=== PATIENT | male | born 1945 | race Caucasian/White ===

== ENCOUNTER → 2018-02-04 10:18 | Outpatient (CLI) | payer MEDICARE, OTHER, SELFPAY ==
[2018-02-04 11:06] LABS: INR 3.2 (1.0-3.5); Prothrombin Time 29.7 sec (9.3-10.8)
== END ==
PROVIDERS: PCP General Practice; Visit Provider General Practice
DX: I48.91 Unspecified atrial fibrillation (principal); Z79.01 Long term (current) use of anticoagulants
CPT/HCPCS: 36415; 85610

== ENCOUNTER 2018-03-11 10:31 | Outpatient (CLI) | payer MEDICARE, OTHER, SELFPAY ==
[2018-03-11 11:19] LABS: INR 2.9 (1.0-3.5)
== END 2018-03-11 10:51 ==
PROVIDERS: PCP General Practice; Visit Provider General Practice
DX: I48.91 Unspecified atrial fibrillation (principal); Z79.01 Long term (current) use of anticoagulants
CPT/HCPCS: 36415; 85610

== ENCOUNTER 2018-04-09 10:35 | Outpatient (CLI) | payer MEDICARE, OTHER, SELFPAY ==
[2018-04-09 11:48] LABS: INR 2.1 (1.0-3.5); Prothrombin Time 19.7 sec (9.3-10.8)
== END 2018-04-09 10:55 ==
PROVIDERS: PCP General Practice; Visit Provider General Practice
DX: I48.91 Unspecified atrial fibrillation (principal); Z79.01 Long term (current) use of anticoagulants
CPT/HCPCS: 36415; 85610

== ENCOUNTER 2018-04-30 10:34 | Outpatient (CLI) | payer MEDICARE, OTHER, SELFPAY ==
[2018-04-30 11:12] LABS: INR 2.2 (1.0-3.5); Prothrombin Time 20.9 sec (9.3-10.8)
== END 2018-04-30 10:54 ==
PROVIDERS: PCP General Practice; Visit Provider General Practice
DX: I48.91 Unspecified atrial fibrillation (principal); Z79.01 Long term (current) use of anticoagulants
CPT/HCPCS: 36415; 85610

== ENCOUNTER 2018-06-03 10:54 | Outpatient (CLI) | payer MEDICARE, OTHER, SELFPAY ==
[2018-06-03 11:50] LABS: INR 2.5 (1.0-3.5); Prothrombin Time 23.5 sec (9.3-10.8)
== END 2018-06-03 11:14 ==
PROVIDERS: PCP General Practice; Visit Provider General Practice
DX: I48.91 Unspecified atrial fibrillation (principal); Z79.01 Long term (current) use of anticoagulants
CPT/HCPCS: 36415; 85610

== ENCOUNTER 2018-07-09 10:10 | Outpatient (CLI) | payer MEDICARE, OTHER, SELFPAY ==
[2018-07-09 10:47] LABS: INR 2.3 (0.9-1.1); Prothrombin Time 23.5 sec (9.3-11.0)
== END 2018-07-09 10:30 ==
PROVIDERS: PCP General Practice; Visit Provider General Practice
DX: I48.91 Unspecified atrial fibrillation (principal); Z79.01 Long term (current) use of anticoagulants
CPT/HCPCS: 36415; 85610

== ENCOUNTER 2018-08-13 10:46 | Outpatient (CLI) | payer MEDICARE, OTHER, SELFPAY ==
[2018-08-13 11:45] LABS: Prothrombin Time 20.6 sec (9.3-11.0)
== END 2018-08-13 11:06 ==
PROVIDERS: PCP General Practice; Visit Provider General Practice
DX: I48.91 Unspecified atrial fibrillation (principal); Z79.01 Long term (current) use of anticoagulants
CPT/HCPCS: 36415; 85610

== ENCOUNTER 2018-09-03 10:22 | Outpatient (CLI) | payer MEDICARE, OTHER, SELFPAY ==
[2018-09-03 11:18] LABS: INR 2.3 (0.9-1.1); Prothrombin Time 23.4 sec (9.3-11.0)
== END 2018-09-03 10:42 ==
PROVIDERS: PCP General Practice; Visit Provider General Practice
DX: I48.91 Unspecified atrial fibrillation (principal); Z79.01 Long term (current) use of anticoagulants
CPT/HCPCS: 36415; 85610

== ENCOUNTER 2018-10-08 11:08 | Outpatient (CLI) | payer MEDICARE, OTHER, SELFPAY ==
[2018-10-08 11:51] LABS: INR 2.6 (0.9-1.1); Prothrombin Time 25.9 sec (9.3-11.0)
== END 2018-10-08 11:28 ==
PROVIDERS: PCP General Practice; Visit Provider General Practice
DX: I48.91 Unspecified atrial fibrillation (principal); Z79.01 Long term (current) use of anticoagulants
CPT/HCPCS: 36415; 85610

== ENCOUNTER 2018-11-06 11:43 | Outpatient (CLI) | payer MEDICARE, OTHER, SELFPAY ==
[2018-11-06 12:30] LABS: INR 2.3 (0.9-1.1); Prothrombin Time 23.3 sec (9.3-11.0)
== END 2018-11-06 12:03 ==
PROVIDERS: PCP General Practice; Visit Provider General Practice
DX: I48.91 Unspecified atrial fibrillation (principal); Z79.01 Long term (current) use of anticoagulants
CPT/HCPCS: 36415; 85610

== ENCOUNTER 2018-12-02 10:47 | Outpatient (CLI) | payer MEDICARE, OTHER, SELFPAY ==
[2018-12-02 11:29] LABS: INR 2.6 (0.9-1.1); Prothrombin Time 26.4 sec (9.3-11.0)
== END 2018-12-02 11:07 ==
PROVIDERS: PCP General Practice; Visit Provider General Practice
DX: I48.91 Unspecified atrial fibrillation (principal); Z79.01 Long term (current) use of anticoagulants
CPT/HCPCS: 36415; 85610

== ENCOUNTER 2019-01-08 09:13 | Outpatient (CLI) | payer MEDICARE, OTHER, SELFPAY ==
[2019-01-08 10:12] LABS: INR 2.8 (0.9-1.1); Prothrombin Time 28.3 sec (9.3-11.0)
== END 2019-01-08 09:33 ==
PROVIDERS: PCP General Practice; Visit Provider General Practice
DX: I48.91 Unspecified atrial fibrillation (principal); Z79.01 Long term (current) use of anticoagulants
CPT/HCPCS: 36415; 85610

== ENCOUNTER 2019-02-04 10:02 | Outpatient (CLI) | payer MEDICARE, OTHER, SELFPAY ==
[2019-02-04 10:53] LABS: INR 2.7 (0.9-1.1); Prothrombin Time 27.4 sec (9.3-11.0)
== END 2019-02-04 10:22 ==
PROVIDERS: PCP General Practice; Visit Provider General Practice
DX: I48.91 Unspecified atrial fibrillation (principal); Z79.01 Long term (current) use of anticoagulants
CPT/HCPCS: 36415; 85610

== ENCOUNTER 2019-03-18 10:26 | Outpatient (CLI) | payer MEDICARE, OTHER, SELFPAY ==
[2019-03-18 11:47] LABS: INR 2.4 (0.9-1.1); Prothrombin Time 23.6 sec (9.3-11.0)
== END 2019-03-18 10:46 ==
PROVIDERS: PCP General Practice; Visit Provider General Practice
DX: I48.91 Unspecified atrial fibrillation (principal); Z79.01 Long term (current) use of anticoagulants
CPT/HCPCS: 36415; 85610

== ENCOUNTER 2019-04-08 10:24 | Outpatient (CLI) | payer MEDICARE, OTHER, SELFPAY ==
[2019-04-08 11:14] LABS: INR 2.2 (0.9-1.1); Prothrombin Time 21.8 sec (9.3-11.0)
== END 2019-04-08 10:44 ==
PROVIDERS: PCP General Practice; Visit Provider General Practice
DX: I48.91 Unspecified atrial fibrillation (principal); Z79.01 Long term (current) use of anticoagulants
CPT/HCPCS: 36415; 85610

== ENCOUNTER 2019-05-01 10:58 | Outpatient (CLI) | payer MEDICARE, OTHER, SELFPAY ==
[2019-05-01 11:55] LABS: INR 2.2 (0.9-1.1); Prothrombin Time 21.6 sec (9.3-11.0)
== END 2019-05-01 11:18 ==
PROVIDERS: PCP General Practice; Visit Provider General Practice
DX: I48.91 Unspecified atrial fibrillation (principal); Z79.01 Long term (current) use of anticoagulants
CPT/HCPCS: 36415; 85610

== ENCOUNTER 2019-06-03 10:07 | Outpatient (CLI) | payer MEDICARE, OTHER, SELFPAY ==
[2019-06-03 11:09] LABS: INR 2.4 (0.9-1.1); Prothrombin Time 23.2 sec (9.3-11.0)
== END 2019-06-03 10:27 ==
PROVIDERS: PCP Family Medicine; Visit Provider General Practice
DX: I48.91 Unspecified atrial fibrillation (principal); Z79.01 Long term (current) use of anticoagulants
CPT/HCPCS: 36415; 85610

== ENCOUNTER 2019-08-12 07:59 | Outpatient (CLI) | payer MEDICARE, OTHER, SELFPAY | END 2019-08-12 08:19 | PROVIDERS: PCP Family Medicine; Visit Provider Internal Medicine Cardiovascular Disease | DX: I48.91 Unspecified atrial fibrillation (principal) | CPT/HCPCS: 99202; 93005; 93010; 99213 ==

== ENCOUNTER 2019-08-28 08:12 | Outpatient (CLI) | payer MEDICARE, OTHER, SELFPAY ==
[2019-08-28 09:58] LABS: Digoxin 1.04 ng/mL (0.90-2.00)
== END 2019-08-28 08:32 ==
PROVIDERS: PCP Family Medicine; Visit Provider Internal Medicine Cardiovascular Disease
DX: I48.91 Unspecified atrial fibrillation (principal); Z51.81 Encounter for therapeutic drug level monitoring
CPT/HCPCS: 36415; 80162

== ENCOUNTER 2019-09-02 01:41 | Outpatient (CLI) | payer MEDICARE, OTHER, SELFPAY ==
--- NOTE | 2019-09-02 16:10 | DI.US_ITS ---
APPROVED REPORT EXAM: Comprehensive 2D, Doppler, and color-flow Echocardiogram Patient Location: Out-Patient Conclusion Left Ventricle : The left ventricle is normal size. Left ventricular systolic function is mildly dec reased. There is normal left ventricular wall thickness. There is normal LV segmental wall motion. D iastolic function was indeterminate. LVEF is 45-49%. Right Ventricle : The right ventricle is normal size. RV function appears normal. Atria : Left atrium is mildly dilated. Right atrium is mildly dilated. Aortic Valve : Aortic valve is trileaflet. No aortic regurgitation is present. There is no aortic niki vular stenosis. Mitral Valve : There is mitral annular calcification. Trace mitral regurgitation. No evidence of mitr al valve stenosis. Tricuspid Valve : The tricuspid valve is normal in structure. Mild to moderate tricuspid regurgitatio n. There is no tricuspid valve stenosis. Great Vessels : IVC is normal in size and collapses >50% with inspiration. Estimated RVSP is 23-26 m mHg. There is no prior echocardiogram available for comparison. Wall motion Left Ventricle The left ventricle is normal size. Left ventricular systolic function is mildly decreased. There is n ormal left ventricular wall thickness. There is normal LV segmental wall motion. Diastolic function w as indeterminate. LVEF is 45-49%. Right Ventricle The right ventricle is normal size. RV function appears normal. Atria Left atrium is mildly dilated. Right atrium is mildly dilated. Aortic Valve Aortic valve is trileaflet. There is no aortic valvular stenosis. No aortic regurgitation is present. Mitral Valve There is mitral annular calcification. No evidence of mitral valve stenosis. Trace mitral regurgitati on. Tricuspid Valve The tricuspid valve is normal in structure. There is no tricuspid valve stenosis. Mild to moderate tr icuspid regurgitation. Pulmonic Valve The pulmonary valve is normal in structure. There is no pulmonic valvular stenosis. There is no pulmo abdoulaye valvular regurgitation. Great Vessels The aortic root is normal in size. The ascending aorta size is mildly dilated. IVC is normal in size and collapses >50% with inspiration. Estimated RVSP is 23-26 mmHg. Pericardium There is no pericardial effusion. 2D Dimensions IVSD d PLAX 0.88 cm M: 0.6-1.2 LV Vol A2C d MOD 78.4 mL LVPW d PLAX 0.84 cm M: 0.6 - 1.2 LV Vol A4C d MOD 90.5 mL LVID d PLAX 4.28 cm M: 4.2 - 5.8 LA vol/ BSA A2C s A-L 57.4 mL/m2 LVDs 3.10 cm M: 2.5 - 4.0 LA vol/ BSA A4C s A-L 52.5 mL/m2 Ao Root d 3.46 cm M: 3.1 - 3.7 LA Vol/ BSA Biplane s A-L 60.1 mL/m2 RA Area A4C 32.88 cm2 LA Area A4C s MOD 31.06 cm2 RA Vol/ BSA A4C s A-L 61.7 mL/m2 LA Area A2C s MOD 29.65 cm2 Ao Asc Diam d 3.49 cm M: 2.6 - 3.4 LV EF A4C MOD 50.9 % LV EF Teichholz 53.2 % LV EF A2C MOD 48.0 % LVEF (Brink's) 47.39 % M: 52 - 72 LV EF Biplane MOD 47.4 % LV Volume 62.22 mL M: 62 - 150 LV Volume Index 29.91 mL/m2 M: 34 - 74 LV Vol Biplane MOD 84.1 mL FS 27.10 % LV Diastology MV E' medial 0.102 (>0.07 m/s) E/A Ratio 2.1 LV E/e MED 9.35 (<14) MV E Vmax 0.95 (0.4-1.3 m/s) MV E/E' medial 9.39 MV A Vmax 0.45 (0.4-1.3 m/s) MV E/A Ratio 1.99 Aortic Valve LVOT Area 2.60 cm2 AoV Area Vmax 1.56 cm2 LVOT Vmax 0.84 m/s AoV Area/ BSA (Vmax) 0.75 cm2/m2 LVOT Mean Kevin. 0.55 m/s FRANCISCA Mean Kevin. 1.50 cm2 LVOT Peak Grad 2.8 mmHg FRANCISCA Mean Kevin. Index 0.72 cm2/m2 LVOT Mean Grad 1.4 mmHg LVOT VTI 0.152 m LVOT Diam s 1.80 cm (M/F) 1.5-2.5 AoV Vmax 1.40 (0.5-1.3 m/s) Velocity Ratio 0.60 AoV Mean Kevin. 0.95 m/s AoV Peak Grad 7.9 mmHg LVOT SV 39.49 mL AoV Mean Grad 4.2 (<5 mmHg) AoV VTI 0.229 (0.18-0.25 m) AoV Area VTI 1.72 (2.5-4.5 cm2) AoV Area/ BSA (VTI) 0.82 cm/m2 Mitral Valve MV DT 155 (160-240 msec) MV PHT 45 msec MV Area PHT 4.88 cm2 Pulmonary Valve PV Vmax 0.99 (0.5-1.5 m/s) RVOT Peak Gr. 1.52 mmHg PV Peak Grad 3.9 mmHg RVOT Mean Gr. 0.70 mmHg PV Mean Grad 1.9 mmHg RVOT VTI 0.108 m PV VTI 0.156 m RVOT Vmax 0.62 m/s Tricuspid Valve TR Peak Grad 23.5 mmHg TR Vmax 2.43 m/s RA Pressure 3.00 mmHg RVSP (TR) 26.6 mmHg
== END 2019-09-02 02:01 ==
PROVIDERS: PCP Family Medicine; Visit Provider Internal Medicine Cardiovascular Disease
DX: I48.91 Unspecified atrial fibrillation (principal); I34.0 Nonrheumatic mitral (valve) insufficiency; I50.1 Left ventricular failure, unspecified
CPT/HCPCS: 93306

== ENCOUNTER 2019-12-31 09:55 | Outpatient (REF) | payer MEDICARE, OTHER, SELFPAY ==
[2019-12-31 18:36] LABS: ALT 33 U/L (16-63); AST 21 U/L (15-37); Alkaline Phosphatase 59 U/L (46-116); Anion Gap 8.4 mmol/L (3-11); BUN 13 mg/dL (7-18); Bilirubin, Total 0.7 mg/dL (0.2-1.0); CO2 27.6 mmol/L (21.0-32.0); CREATININE 1.09 mg/dL (0.70-1.30); Calculated LDL 119 mg/dL (<100); Chloride 102 mmol/L (98-107); Cholesterol 177 mg/dL (<200); Glucose 130 mg/dL (74-106); HDL Cholesterol 34 mg/dL (40-60); Magnesium 2.1 mg/dL (1.8-2.4); Potassium 4.5 mmol/L (3.5-5.1); Sodium 138 mmol/L (136-145); Total Protein 7.4 g/dL (6.4-8.2); Triglyceride 121 mg/dL (<150)
== END 2019-12-31 10:15 ==
LOC: LBN 09:55
PROVIDERS: PCP Family Medicine; Visit Provider Family Medicine
DX: I10 Essential (primary) hypertension (principal); I48.91 Unspecified atrial fibrillation
CPT/HCPCS: 80053; 80061; 83735

== ENCOUNTER → 2020-08-15 10:07 | Outpatient (BNVA) | payer MEDICARE, OTHER, SELFPAY | PROVIDERS: PCP Family Medicine; Referring Provider Family Medicine; Visit Provider Internal Medicine Cardiovascular Disease | DX: I48.91 Unspecified atrial fibrillation (principal); Z79.01 Long term (current) use of anticoagulants; I10 Essential (primary) hypertension; E78.5 Hyperlipidemia, unspecified; J44.9 Chronic obstructive pulmonary disease, unspecified | CPT/HCPCS: 99214; 99213 ==

== ENCOUNTER → 2021-08-17 09:54 | Outpatient (BNVA) | payer MEDICARE, OTHER, SELFPAY | PROVIDERS: PCP Family Medicine; Referring Provider Family Medicine; Visit Provider Internal Medicine Cardiovascular Disease | DX: I48.91 Unspecified atrial fibrillation (principal); I10 Essential (primary) hypertension; Z79.01 Long term (current) use of anticoagulants | CPT/HCPCS: 99214; 99213 ==

== ENCOUNTER 2022-04-03 02:37 | Outpatient (CLI) | payer MEDICARE, OTHER, SELFPAY ==
[2022-04-03 09:50] LABS: ALT 35 U/L (16-63); AST 26 U/L (15-37); Albumin 4.1 g/dL (3.4-5.0); Alkaline Phosphatase 62 U/L (46-116); Anion Gap 9.1 mmol/L (3-11); BUN 13 mg/dL (7-18); Bilirubin, Total 0.8 mg/dL (0.2-1.0); CO2 28.9 mmol/L (21.0-32.0); CREATININE 1.1 mg/dL (0.70-1.30); Calcium 8.5 mg/dL (8.5-10.1); Chloride 101 mmol/L (98-107); Estimated GFR 70.44 (mL/min/1.73m2); Glucose 132 mg/dL (74-106); Potassium 4.3 mmol/L (3.5-5.1); Sodium 139 mmol/L (136-145)
[2022-04-03 14:22] LABS: Digoxin 3.08 ng/mL (0.90-2.00)
[2022-04-04 10:04] LABS: HIV-1/2 Ag & Ab Screen Negative (Negative)
[2022-04-04 10:25] LABS: Hepatitis C Ab w Rflx HCV PCR Negative (Negative)
== END 2022-04-03 02:38 | disposition home or self-care (01) ==
LOC: LBO 02:38
PROVIDERS: PCP Family Medicine; Visit Provider Family Medicine
DX: Z11.3 Encounter for screening for infections with a predominantly sexual mode of transmission (principal); E78.5 Hyperlipidemia, unspecified; I48.91 Unspecified atrial fibrillation; Z11.59 Encounter for screening for other viral diseases
CPT/HCPCS: 36415; 80053; 86803; 87389; 80162

== ENCOUNTER → 2022-08-20 09:47 | Outpatient (BNVA) | payer MEDICARE, SELFPAY | PROVIDERS: PCP Family Medicine; Visit Provider Internal Medicine Cardiovascular Disease | DX: I48.21 Permanent atrial fibrillation (principal); Z79.01 Long term (current) use of anticoagulants | CPT/HCPCS: 99213 ==

== ENCOUNTER 2023-04-23 02:41 | Outpatient (CLI) | payer MEDICARE, SELFPAY ==
[2023-04-23 11:44] LABS: Prothrombin Time 27.5 sec (9.1-11.1)
[2023-04-23 12:15] LABS: Anion Gap 10.1 mmol/L (3-11); BUN 12 mg/dL (7-18); CO2 27.9 mmol/L (21.0-32.0); Calcium 9.1 mg/dL (8.5-10.1); Chloride 104 mmol/L (98-107); Glucose 130 mg/dL (74-106); Potassium 4.1 mmol/L (3.5-5.1); Sodium 142 mmol/L (136-145)
== END 2023-04-23 02:42 | disposition home or self-care (01) ==
LOC: LBO 02:41
PROVIDERS: PCP Family Medicine; Visit Provider Family Medicine
DX: E78.5 Hyperlipidemia, unspecified (principal); R73.03 Prediabetes; I48.91 Unspecified atrial fibrillation
CPT/HCPCS: 36415; 80048; 85610

== ENCOUNTER → 2023-07-26 00:57 | Outpatient (CLI) | payer MEDICARE, SELFPAY ==
--- NOTE | 2023-07-26 12:30 | DI.US_ITS ---
APPROVED REPORT EXAM: Comprehensive 2D, Doppler, and color-flow Echocardiogram Patient Location: Out-Patient Field Marketing Manager: Dmitri Saldana RDCS (AE) Conclusion The atria are moderately dilated,ventricles normal sizes Normal LV systolic function,EF 50-55%. Normal RV function. Mild mitral annular calcification,mild MR. Mild aortic sclerosis,no AI or . Moderate TR without pht n. No intracardiac shunt No pericardial effusion. Wall motion Left Ventricle The left ventricle is normal size. Left ventricular systolic function is borderline. The Ejection Fra ction is 50-55%. There is normal left ventricular wall thickness. There is normal LV segmental wall m otion. There is no ventricular septal defect visualized. LVEF is 50-55%. Right Ventricle The right ventricle is normal size. Right ventricular systolic function is grossly normal. Atria Left atrium is moderately dilated. Right atrium is severely dilated. The interatrial septum is intact with no evidence for an atrial septal defect. Aortic Valve The aortic valve is normal in structure. Aortic valve is trileaflet. There is no aortic valvular sten osis. No aortic regurgitation is present. Mitral Valve Moderate mitral annular calcification. No evidence of mitral valve stenosis. Trace to mild mitral reg urgitation. Tricuspid Valve The tricuspid valve is normal in structure. There is no tricuspid valve stenosis. Moderate tricuspid regurgitation. The RVSP is 29.3 mmHg. Pulmonic Valve The pulmonary valve is normal in structure. There is no pulmonic valvular stenosis. Trace pulmonic re gurgitation. Great Vessels The aortic root is normal in size. The ascending aorta is normal in size. IVC is normal in size and c ollapses >50% with inspiration. Pericardium There is no pericardial effusion. 2D Dimensions IVSD d PLAX 0.86 cm M: 0.6-1.2 Ao Root d 3.39 cm M: 3.1 - 3.7 LVPW d PLAX 0.89 cm M: 0.6 - 1.2 Ao Asc Diam d 3.37 cm M: 2.6 - 3.4 LVID d PLAX 4.87 cm M: 4.2 - 5.8 LVDs 3.65 cm M: 2.5 - 4.0 LV EF Teichholz 49.5 % FS 25.09 % LV EDV (Teich) 111.5 mL LV ESV (Teich) 56.3 mL Stroke Vol Index (Teich) 26.25 Auto EF LV EDV A4C 91.9 mL LV EDV A2C 121.4 mL LV EDV BP 102.9 mL LV ESV A4C 48.2 mL LV ESV A2C 65.6 mL LV ESV BP 56.9 mL LVEF(%) A4C 47.6 % LVEF(%) A2C 46.0 % LVEF(%) BP 44.7 % LV SV A4C 43.7 ml LV SV A2C 55.8 ml LV SV BP 46.0 ml LV CO A4C 3.2 L/min LV CO A2C 5.2 L/min LV CO BP 4.2 L/min HR A4C 72.88 BPM HR A2C 93.51 BPM LV EDV Index (BP) LA Volume LA Length A4C 7.1 cm LA Length A2C 6.8 cm LA Area A4C s 30.42 cm2 LA Area A2C s 32.14 cm2 LA Vol A4C A-L 110.77 mL LA Vol A2C A-L 129.84 mL LA Vol Biplane A-L 122.9 mL LA Vol/BSA A4C A-L LA Vol/BSA A2C A-L LA Vol/BSA BP A-L 58.5 mL/m2 LA Vol A4C MOD 101.4 mL LA Vol A2C MOD 122.0 mL LA Vol BP MOD 113.3 mL RA Volume RA Area A4C 33.4 cm2 RA ESV A4C (A-L) 127.2mL RA Vol/BSA A4C A-L RA Length A4C 7.4 cm RA ESV A4C (MOD) 124.5mL LV Diastology MV E' medial 0.134 (>0.07 m/s) MV E Vmax 1.21 (0.4-1.3 m/s) MV E' lateral 0.175 (>0.1 m/s) Aortic Valve AoV Vmax 1.09 m/s LVOT Vmax 0.77 m/s AoV Peak Grad 4.7 mmHg LVOT Peak Grad 2.4 mmHg AoV Area (Vmax) 1.71 cm2 LVOT VTI 0.150 m AoV VTI 0.173 m LVOT Mean Grad 1.5 mmHg AoV Mean Kevin. 0.76 m/s LVOT SV 36.18 mL AoV Mean Grad 2.6 mmHg LVOT Diam s 1.75 cm AoV Area (VTI) 2.09 cm2 Velocity Ratio 0.71 Pulmonary Valve RVOT Vmax 0.44 m/s RVOT Peak Gr. 0.8 mmHg RVOT VTI 0.060 m RVOT Mean Gr. 0.4 mmHg Tricuspid Valve RA Pressure 3.00 mmHg TR Vmax 2.56 m/s TV S' 0.13 m/s TR Peak Grad 26.2 mmHg RVSP (TR) 29.3 mmHg
== END ==
PROVIDERS: PCP Family Medicine; Visit Provider Internal Medicine Cardiovascular Disease
DX: I48.91 Unspecified atrial fibrillation (principal)
CPT/HCPCS: 93306

== ENCOUNTER 2023-08-22 09:44 | Outpatient (CLI) | payer MEDICARE, SELFPAY ==
--- NOTE | 2023-08-22 09:45 | RT.EKG_ITS ---
APPROVED REPORT Exam: Resting ECG Reason for Exam: follow up Patient Location: O HR:84 bpm ECG Measurements Heart Rate 84 AXIS NH [id number] P [id number] QRSd 93 QRS -2 QT 374 T 26 QTc 443 Conclusion Atrial fibrillation...? atrial activity Otherwise normal ECG
== END 2023-08-22 09:45 | disposition home or self-care (01) ==
LOC: DI.CARD 09:46
PROVIDERS: PCP Family Medicine; Visit Provider Internal Medicine Cardiovascular Disease
DX: I48.91 Unspecified atrial fibrillation (principal)
CPT/HCPCS: 93010

== ENCOUNTER → 2023-08-22 09:44 | Outpatient (BNVA) | payer MEDICARE, SELFPAY | PROVIDERS: PCP Family Medicine; Referring Provider Family Medicine; Visit Provider Internal Medicine Cardiovascular Disease | DX: I48.21 Permanent atrial fibrillation (principal); I10 Essential (primary) hypertension | CPT/HCPCS: 93005; 99213 ==

== ENCOUNTER 2023-10-13 09:21 | Emergency (ER) | payer MEDICARE, SELFPAY ==
[2023-10-13 09:25] VITALS: BP 181/104; PULSE 98; RESP 16; TEMP 36.7; O2SAT 98
[2023-10-13 09:30] VITALS: BP 168/99; PULSE 94; RESP 16; TEMP 36.8; O2SAT 97
--- NOTE | 2023-10-13 09:35 | W.ED.GENAD ---
Discharge Plan Disposition Patient Disposition: Home Condition: Stable Discharge Details Clinical Impression: Hematoma of right lower extremity Primary Care Provider: Andrew Gan ED Provider: Clive Avalos Home Meds and New Rx's Prescriptions: Continued omeprazole 20 mg capsule,delayed release(DR/EC) 20 mg PO DAILY Qty: 90 3RF diltiazem HCl [Cartia XT] 240 mg capsule,extended release 24hr 240 mg PO DAILY Qty: 90 3RF pravastatin 40 mg tablet 40 mg PO DAILY Qty: 90 3RF albuterol sulfate 90 mcg/actuation HFA aerosol inhaler 2 puff inhalation Q6H PRN (Reason: shortness of breath or wheezing) Qty: 8.5 6RF metoprolol succinate 25 mg tablet extended release 24 hr 25 mg PO DAILY Qty: 90 3RF warfarin 5 mg tablet 5 mg PO DAILY MDD 5 Qty: 90 3RF Protocol: Dose Management Condition: Saturday Dose/Route: 5 mg Instruction: 1 x 5 mg tablet Condition: Saturday Dose/Route: 5 mg Instruction: 1 x 5 mg tablet Condition: Saturday Dose/Route: 2.5 mg Instruction: 0.5 x 5 mg tablets Condition: Saturday Dose/Route: 5 mg Instruction: 1 x 5 mg tablet Condition: Dose/Route: 5 mg Instruction: 1 x 5 mg tablet Condition: Saturday Dose/Route: 2.5 mg Instruction: 0.5 x 5 mg tablets Condition: Saturday Dose/Route: 5 mg Instruction: 1 x 5 mg tablet Protocol Text: Adjustment Start Date: Saturday09/17/23 INR Value: 2.1 INR Date: 09/17/23 Recheck Date: 10/15/23 Discharge Instructions Additional Instructions: You have a hematoma that will resolve on its own over the course of a week or 2. You can try keeping the leg elevated and applying ice along with the Marco A wrap If not better in 1 to 2 weeks follow-up with your primary care provider If you feel more ill, have severe worsening pain or new symptoms such as difficulty breathing return to the emergency department for reevaluation HPI General Mode of arrival: ambulatory. Date/Time Provider Initiated Documentation: 10/13/23 09:22. Limitations to Documentation: no limitations. Information obtained by: patient. History of Present Illness 78 year old M presents to the emergency department with the chief complaint of Right calf bruising and pain, described as moderate, Patient started experiencing this day(s) (2) and it has been constant. Rest improves symptom(s), Movement worsens symptoms . Patient notes no other symptoms.. Related Data Home Medications Medication Instructions Recorded Confirmed diltiazem HCl 240 mg 240 mg PO DAILY #90 caps 11/26/22 10/13/23 capsule,extended release 24 hr (Cartia XT) omeprazole 20 mg capsule,delayed 20 mg PO DAILY #90 caps 11/26/22 10/13/23 release pravastatin 40 mg tablet 40 mg PO DAILY #90 tabs 01/07/23 10/13/23 albuterol sulfate 90 mcg/actuation 2 puff inhalation Q6H PRN 07/01/23 10/13/23 aerosol inhaler shortness of breath or wheezing #8.5 grams metoprolol succinate 25 mg 25 mg PO DAILY #90 tabs 07/01/23 10/13/23 tablet,extended release 24 hr warfarin 5 mg tablet 5 mg PO DAILY #90 tab-caps 08/05/23 10/13/23 Previous Rx's Medication Instructions Recorded diltiazem HCl 240 mg 240 mg PO DAILY #90 caps 11/26/22 capsule,extended release 24 hr (Cartia XT) omeprazole 20 mg capsule,delayed 20 mg PO DAILY #90 caps 11/26/22 release pravastatin 40 mg tablet 40 mg PO DAILY #90 tabs 01/07/23 albuterol sulfate 90 mcg/actuation 2 puff inhalation Q6H PRN 07/01/23 aerosol inhaler shortness of breath or wheezing #8.5 grams metoprolol succinate 25 mg 25 mg PO DAILY #90 tabs 07/01/23 tablet,extended release 24 hr warfarin 5 mg tablet 5 mg PO DAILY #90 tab-caps 08/05/23 Allergies Allergy/AdvReac Type Severity Reaction Status Date / Time prednisone Allergy Severe increased Verified 10/13/23 09:24 eye pressure, distorted vision General Stated Complaint: Orthopedic MOHIT: 3 Review of Systems All systems reviewed & are unremarkable except as noted in HPI and below Constitutional Constitutional: Denies chills, Denies fever(s) and Denies weakness Cardiovascular Cardiovascular: Denies chest pain and Denies dyspnea Respiratory Respiratory: Denies cough and Denies dyspnea Gastrointestinal Gastrointestinal: Denies abdominal pain, Denies nausea and Denies vomiting Musculoskeletal Musculoskeletal: Denies joint swelling Integumentary/Breasts Skin/Breast: Denies rash Neurologic Neurologic: Denies weakness Exam Const General: no acute distress Orientation: alert HENMT Head: normal to inspection Ears: external ears normal General nose exam: external nose normal Mouth: moist mucous membranes Eyes General: appearance normal, both eyes and all related structures Neck Neck: normal visual inspection Resp Effort & Inspection: normal respiratory effort and able to speak in complete sentences Cardio Rate: regular rate Skin General skin exam: no rashes or lesions noted Neuro General: patient alert and patient oriented x3 Extrem General: full ROM and capillary refill normal Psych Mental Status: mental status grossly normal Course Vital Signs Vital signs: Vital Signs Temperature 36.7 C 10/13/23 09:25 Pulse 98 H 10/13/23 09:25 Respiratory Rate 16 10/13/23 09:25 Blood Pressure 181/104 H 10/13/23 09:25 Pulse Oximetry 98 10/13/23 09:25 Temperature 36.8 C 10/13/23 09:30 Temperature Source Temporal Artery Scan 10/13/23 09:25 Pulse 94 H 10/13/23 09:30 Respiratory Rate 16 10/13/23 09:30 Respiratory Effort Normal, Non-Labored 10/13/23 09:27 Blood Pressure 168/99 H 10/13/23 09:30 Blood Pressure Position Sitting 10/13/23 09:25 Pulse Oximetry 97 10/13/23 09:30 Oxygen Delivery Method Room Air 10/13/23 09:25 Oxygen Flow Rate 0 10/13/23 09:25 Pain Level 6 10/13/23 09:30 Medical Decision Making 78-year-old male with a history of A-fib on Coumadin, comes in with right calf pain and swelling for 2 days. He says he was cutting wood, picked up a log and while turning another log rolled and hit him in the right calf. Denies falling or hitting his head, no other injuries. He had swelling and pain and bruising at the calf area so came in for an evaluation. Appears well in no distress speaking clearly and oriented x 4. His right lower leg just distal to the knee and proximal to the ankle is bruised. He does have what feels like a hematoma on the posterior superior right calf and it feels about 5 cm in diameter. No erythema or fluctuance, he has full range of motion of the knee and ankle and foot. Normal pulses and sensation in the foot. No bony tenderness. Discussed results with him that this will resolve on its own, do not feel any x-rays indicated as he has no bony tenderness. 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 MOHS performed for tumor removal. 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 History of cervical discectomy History of splenectomy Colonoscopy - MAC (05/29/17) Family History Father Lung cancer Hypertension Aorta aneurysm AA Surgery Mother Hypertension Sister Brain bleed Social History Smoking/Tobacco Use Status: Former Tobacco Use Quit Date: 06/24/80 Tobacco: How many years used: 18 Smoking risk assessment performed?: Yes Alcohol Intake: current Alcohol Intake frequency: 3 or more drinks per day Alcohol type: beer Drug use: Never Substance use type: does not use Adopted: No Caregiver/Support person: No Foster care: No Household members: none Housing: house Number of Children: 2 number of grandchildren: 5 Communication Needs: None Education Level: high school Do you need help understanding health information?: Rarely current occupation: retired [employer] Pets and animals: No Sexually active: No Do you think of yourself as: straight/heterosexual Current gender identity: male What is your relationship status?: How often do you talk on the phone with friends or family?: three or more times per week How often do you get together with friends or relatives?: three or more times per week Do you belong to any clubs or organized social groups?: no Panel score (0-1 are the most socially isolated patients): 1 What type of physical activity do you participate in: none Shweta/Taoism: Zoroastrianism Special shweta needs: No Seatbelt use: always 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
== END 2023-10-13 09:46 | disposition home or self-care (01) ==
PROVIDERS: Emergency Provider Emergency Medicine; PCP Family Medicine
DX: S80.11XA Contusion of right lower leg, initial encounter (principal); I48.91 Unspecified atrial fibrillation; E78.5 Hyperlipidemia, unspecified; Z79.01 Long term (current) use of anticoagulants; Z87.891 Personal history of nicotine dependence; W22.8XXA Striking against or struck by other objects, initial encounter; Y93.89 Activity, other specified
CPT/HCPCS: 99283

== ENCOUNTER 2024-06-11 09:16 | Outpatient (CLI) | payer MEDICARE, SELFPAY | END 2024-06-11 09:17 | disposition home or self-care (01) | LOC: LBO 09:18 | PROVIDERS: PCP Family Medicine; Visit Provider Family Medicine | DX: Z80.42 Family history of malignant neoplasm of prostate (principal); Z12.5 Encounter for screening for malignant neoplasm of prostate | CPT/HCPCS: 36415; 84153 ==

== ENCOUNTER → 2024-08-21 09:48 | Outpatient (BNVA) | payer MEDICARE, SELFPAY | PROVIDERS: PCP Family Medicine; Visit Provider Internal Medicine Cardiovascular Disease | DX: I48.21 Permanent atrial fibrillation (principal) | CPT/HCPCS: 99213 ==

== ENCOUNTER 2025-03-09 03:34 | Outpatient (CLI) | payer MEDICARE, SELFPAY ==
--- NOTE | 2025-03-09 05:45 | DI.MRI_ITS ---
Exam(s) MR UPPER JOINT LT WO EXAM: MR UPPER JOINT LT WO CLINICAL HISTORY: loss of ROM,LT SHOULDER PAIN, M25.512. TECHNIQUE: Multiplanar multisequence MRI was performed. COMPARISON: No exams were available for comparison FINDINGS: BONES: There is no fracture or contusion pattern. JOINTS: There are marked degenerative changes seen at the acromioclavicular joint. There is an AC joint cyst present. There is marked osteoarthritis of the glenohumeral joint with loss of the joint space, subchondral cysts, loss of the articular cartilage and subchondral edema. There is a small amount of fluid seen in the joint space. There are densities seen in the inferior glenohumeral joint space consistent with loose bodies. The largest measures 1.6 cm. TENDONS: Supraspinatus: There is thickening and intermediate signal seen in the supraspinatus consistent with tendinosis. There is hyperintense signal seen at its insertion site consistent with a partial tear. Infraspinatus: There is tendinosis of the infraspinatus tendon. Subscapularis: Unremarkable. Teres Minor: Unremarkable. Biceps and [place]: There is tendinosis of the biceps tendon. MUSCLES: Unremarkable. GLENOID LABRUM: The glenoid labrum appears irregular in size and signal superiorly and posteriorly consistent with degeneration and/or tear. SOFT TISSUES: Unremarkable. LIGAMENTS: Unremarkable. OTHER: There is a large amount of fluid seen in the subacromial and subdeltoid bursa. IMPRESSION: 1. Partial tear of the supraspinatus tendon. 2. Tendinosis of the supraspinatus and infraspinatus tendons. 3. Marked osteoarthritis of the glenohumeral joint. 4. Density seen in the inferior glenohumeral joint space consistent with loose bodies. The largest measures 1.6 cm. 5. Marked degenerative changes seen at the acromioclavicular joint. 6. There is degeneration and/or tear of the glenoid labrum superiorly and posteriorly. 7. Large amount of fluid seen in the subdeltoid bursa. DATA REPOSITORY:
== END 2025-03-09 03:54 ==
LOC: DI 03:35
PROVIDERS: PCP Family Medicine; Visit Provider Family Medicine
DX: M25.512 Pain in left shoulder (principal); M75.112 Incomplete rotator cuff tear or rupture of left shoulder, not specified as traumatic; M19.012 Primary osteoarthritis, left shoulder
CPT/HCPCS: 73221

== ENCOUNTER 2025-03-30 14:29 | Outpatient (CLI) | payer MEDICARE, SELFPAY ==
--- NOTE | 2025-03-30 13:03 | DI.RAD_ITS ---
Exam(s) XR SHOULDER LT COMPLETE 2+V EXAM: XR SHOULDER LT COMPLETE 2+V CLINICAL HISTORY: LEFT SHOULDER PAIN. TECHNIQUE: 2D digital imaging was performed of the left shoulder. Two images were obtained. Grashey and axillary views were obtained. COMPARISON: MR MR UPPER JOINT LT WO from 03/09/2025 FINDINGS: BONES: No acute fracture is present. No bony destructive lesion is seen. JOINTS: There is loss of the glenohumeral joint space. There is an osteophyte at the inferior aspect of the humeral head. There is a 2.3 cm osseous density inferior to the glenohumeral joint likely reflecting the loose body. Degenerative changes are seen at the acromioclavicular joint. SOFT TISSUE: Normal. IMPRESSION: Marked osteoarthritis of the glenohumeral joint. DATA REPOSITORY: RADIATION DOSE DELIVERED:
== END 2025-03-30 14:30 | disposition home or self-care (01) ==
LOC: DIORS 14:29
PROVIDERS: PCP Family Medicine; Referring Provider Family Medicine; Visit Provider Student in an Organized Health Care Education/Training Program
DX: M19.012 Primary osteoarthritis, left shoulder (principal); M25.512 Pain in left shoulder; G89.29 Other chronic pain; E11.9 Type 2 diabetes mellitus without complications; Z79.01 Long term (current) use of anticoagulants
CPT/HCPCS: 99214; 73030

== ENCOUNTER 2025-04-14 01:16 | Outpatient (CLI) | payer MEDICARE, SELFPAY ==
--- NOTE | 2025-04-14 07:15 | DI.RAD_ITS ---
Exam(s) RF JOINT INJ. FLUORO GUID RAD EXAM: RF JOINT INJ. FLUORO GUID RAD CLINICAL HISTORY: L SHOULDER PAIN,fluoro guided injection,01 lt glenohumeral joint,m19.012. The Patient has had persistent left shoulder pain. Noninvasive measures have been tried. To serve as both diagnostic and therapeutic, an injection under fluoroscopy was recommended. The risks of the procedure were discussed with their Orthopedic provider and the patient elected to proceed. TECHNIQUE: 2D and realtime digital imaging was performed. CONTRAST MATERIAL: Water soluble contrast was utilized. COMPARISON: No exams were available for comparison FINDINGS: The Patient was greeted in the fluoroscopy room. The correct side was identified and the consent was reviewed with the patient and was signed. The patient was properly positioned on the fluoroscopy table. The left shoulderwas then prepped and draped. The left shoulder injection starting point was i dentified by the bony landmarks and fluoroscopy. The skin and soft tissue in the tract of the injection was anesthetized with 0.25% Bupivacaine. A spinal needle was then inserted into the left shoulder joint at the level of the glenohumeral joint under fluoroscopic guidance. A small amount of Omnipaque solution was injected to confirm intraarticular placement. Once confirmed, the left shoulder was injected with 5cc of a solution containing 0.25% Bupivacaine and 40 mg of Depo-Medrol. A bandaid was placed on the injection site. The patient tolerated the procedure well and left the department in good condition. IMPRESSION: Successful left shoulder injection. RADIATION DOSE DELIVERED: Ka,r=2.6 mGy
[2025-04-14] MEDS: Omnipaque 300 MG/ML 10 ML BTL IJ (11:15)
[2025-04-14] MEDS: Normal Saline - Diluent 50 ML VIAL IJ (11:15)
[2025-04-14] MEDS: Bupivacaine 0.25% Pres-Free 10 ML VIAL IJ (11:16)
[2025-04-14] MEDS: methylPREDNISolone ACETATE 40 MG/ML VIAL IM (11:23)
== END 2025-04-14 01:36 ==
LOC: DI 01:16
PROVIDERS: PCP Family Medicine; Visit Provider Student in an Organized Health Care Education/Training Program
DX: M19.012 Primary osteoarthritis, left shoulder (principal)
CPT/HCPCS: 20610; 77002; J0665; J1010